=== PATIENT | male | born 1945 | race Caucasian/White ===

== ENCOUNTER 2018-11-20 14:23 | Outpatient (RCR) | payer MEDICARE, OTHER ==
[~2018-11-20 14:23] MED LIST: FLAGYL500 MG PO; LEVAQUIN 750MG750 M1 PO; ZOFRAN ODT8 MG PO
== END 2019-01-17 | disposition home or self-care (01) ==
LOC: COL.CR
DX: Z48.812 Encounter for surgical aftercare following surgery on the circulatory system (principal); Z95.5 Presence of coronary angioplasty implant and graft; I25.10 Atherosclerotic heart disease of native coronary artery without angina pectoris

== ENCOUNTER 2019-10-08 12:59 | Emergency (ER) | payer MEDICARE, OTHER ==
[~2019-10-08] VITALS: Ht 175.3 cm; Wt 90.9 kg
[2019-10-08 13:12] VITALS: TEMP 100.6
[2019-10-08] MEDS ORDERED: ASPIRIN 81M81 MG/TA2 PO (14:27)
[2019-10-08 14:38] LABS: COLLECTION METHOD CLEAN CATCH
[2019-10-08 14:47] LABS: HEMATOCRIT 40.2 % (42.0-52.0); MEAN CELL VOLUME 89 fl (80.0-100.0); MEAN CORPUSCULAR HEMOGLOBIN 31 pg (27.0-31.0); MEAN CORPUSCULAR HGB CONC 35 g/dl (33.0-37.0); MEAN PLATELET VOLUME 10.2 fl (7.4-10.4); PLATELET COUNT 139 K/mm3 (130-400); REDCELL DISTRIBUTION WIDTH-CV 12.9 % (11.5-14.5)
[2019-10-08 14:50] LABS: INR 1.2 (0.8-3.0); PROTHROMBIN TIME 13.1 SECONDS (9.7-12.8)
[2019-10-08 14:51] LABS: MUCOUS Present /lpf; PH 5 (5-8); SQUAMOUS EPITHELIAL None Seen /hpf; URINE APPEARANCE Clear; URINE BACTERIA None Seen /hpf; URINE BILIRUBIN Negative (NEGATIVE); URINE BLOOD 1+ (NEGATIVE); URINE COLOR Yellow; URINE GLUCOSE Negative (NEGATIVE); URINE KETONE Trace (NEGATIVE); URINE LEUKOCYTE ESTERASE Negative (NEGATIVE); URINE NITRATE Negative (NEGATIVE); URINE PROTEIN(semi-quant) Negative (NEGATIVE); URINE RBC 0-2 /hpf; URINE UROBILINOGEN Negative (NEGATIVE)
[2019-10-08 15:02] LABS: ALANINE AMINOTRANSFERASE 37 U/L (4-49); ALBUMIN 4.3 gm/dL (3.5-5.0); ALKALINE PHOSPHATASE 75 U/L (50-136); ANION GAP 10 mmol/L (7-16); AST,SGOT 32 U/L (15-37); BILIRUBIN,TOTAL 2.4 mg/dL (0.0-1.0); BLOOD UREA NITROGEN 29 mg/dL (9-20); C-REACTIVE PROTEIN 4.4 mg/dL (0.0-0.9); CALCIUM 9.2 mg/dL (8.4-10.2); CARBON DIOXIDE 25 mmol/L (22-30); CHLORIDE 103 mmol/L (98-107); CREATININE, serum 1.28 (0.66-1.25); GLUCOSE 112 mg/dL (74-106); LIPASE 59 U/L (23-300); POTASSIUM 3.8 mmol/L (3.4-5.0); SODIUM 138 mmol/L (137-145); TOTAL PROTEIN 7.4 gm/dL (6.4-8.2)
[2019-10-08 15:10] LABS: TROPONIN-I < 0.012 ng/mL (0.000-0.035)
[2019-10-08 15:37] LABS: BAND 3 % (0-10); LYMPHOCYTE 2 % (20.0-51.0); NEUTROPHILS 90 % (42.0-75.2)
[2019-10-08 15:39] LABS: PLATELET ESTIMATE NORMAL (NORMAL)
[2019-10-08] MEDS ORDERED: DOXYCYCLINE 10100 MG PO (15:41)
[2019-10-08 16:45] VITALS: BP 125/79; PULSE 84
== END 2019-10-08 16:45 | disposition home or self-care (01) ==
LOC: COL.ER 12:59
PROVIDERS: Emergency Medicine
DX: R50.9 Fever, unspecified (principal); Z95.1 Presence of aortocoronary bypass graft
CPT/HCPCS: J7030

== ENCOUNTER 2022-07-02 08:08 | Day surgery (SDC) | payer MEDICARE ==
[~2022-07-02] VITALS: Ht 175.3 cm; Wt 97.2 kg
[~2022-07-02 08:08] MED LIST changes: +ASPIRIN 81M81 MG/TA2 PO; +DOXYCYCLINE 10100 MG PO
[2022-07-02] MEDS ORDERED: HCTZ12.5TAB (09:11)
[2022-07-02] MEDS ORDERED: PRINIVIL10 MG PO (09:11)
[2022-07-02 09:53] VITALS: BP 124/75; PULSE 71; TEMP 97.2
[2022-07-02 10:20] VITALS: BP 119/75; PULSE 68; TEMP 97.4
--- NOTE | 2022-07-02 10:20 | NUR ---
1020 PATIENT RETURNS TO ROOM 3 VIA CART. PATIENT IS DROWSY BUT ALERTS TO VERBAL STIMULI. PATIENT IS IN ROOM. PATIENT AMBULATES BACK TO RECLINER WITH THE ASSISTANCE OF 2 NURSES. RESPIRATIONS EVEN AND UNLABORED. VITAL SIGNS OBTAINED. 1025 PATIENT REQUESTED A MUFFIN AND GRAPE JUICE. NO DIFFICULTIES SWALLOWING. 1035 THIS NURSE REVIEWED DISCHARGE INSTRUCTIONS WITH PATIENT AND PATIENT . BOTH VERBALIZED UNDERSTANDING. 1045 DISCONTINUED IV FROM LEFT AC WITH NO DIFFICULTIES. 1050 DOCTOR IN TO SPEAK WITH PATIENT. 1055 PATIENT DISCHARGES FROM UNIT VIA WHEELCHAIR IN STABLE CONDITION.
[2022-07-02 10:35] VITALS: BP 112/68; PULSE 72
[2022-07-02 10:50] VITALS: BP 118/81; PULSE 62
== END 2022-07-02 10:55 | disposition home or self-care (01) ==
LOC: SDCO 08:08
DX: Z12.11 Encounter for screening for malignant neoplasm of colon (principal); K64.0 First degree hemorrhoids; K57.30 Diverticulosis of large intestine without perforation or abscess without bleeding; Z86.010 Personal history of colon polyps
CPT/HCPCS: J2704; J7120